=== PATIENT | female | born 1990 | race Caucasian/White ===

== ENCOUNTER 2016-11-22 12:49 | Inpatient (IN) | payer OTHER ==
[~2016-11-22] VITALS: Ht 160 cm; Wt 48.2 kg
[2016-11-22 13:44] LABS: PLATELET COUNT 295 x10^3mcL (130-400); RED CELL DISTRIBUTION WIDTH 12.3 % (11.5-14.5)
[2016-11-22 13:56] LABS: CALCIUM 9.3 mg/dL (8.5-10.1); CARBON DIOXIDE 26.1 mmol/L (21-32); CHLORIDE SERUM 105 mmol/L (98-107); CREATININE SERUM 0.9 mg/dL (0.6-1.0); GFR1 > 60 mL/min; GLUCOSE SERUM 88 mg/dL (74-106); POTASSIUM SERUM 4.2 mmol/L (3.5-5.1); SODIUM SERUM 143 mmol/L (136-145)
[2016-11-22 14:01] LABS: ALBUMIN 3.7 g/dL (3.4-5.0); ALKALINE PHOSPHATASE 68 U/L (46-116); ALT/SGPT 19 U/L (14-59); AMYLASE 39 U/L (25-115); AST/SGOT 19 U/L (15-37); BILIRUBIN TOTAL 1.13 mg/dL (0.20-1.00); LIPASE 88 IU/L (73-393); TOTAL PROTEIN, SERUM 7.4 g/dL (6.4-8.2)
[2016-11-22 14:23] LABS: BAND NEUTROPHIL 0 % (0-10); BASOPHIL 0 % (0-2); MONOCYTE 5 % (0-7); SEGMENTED NEUTROPHILS 88 % (37-75); rbc morphology (normal/abnorm) NORMAL (NORMAL)
[2016-11-22 14:24] LABS: PLATELET MORPHOLOGY PLATELETS NORMAL
[2016-11-22 16:36] LABS: PHOSPHOROUS 3.8 mg/dL (2.5-4.9)
[2016-11-22 16:48] LABS: FREE T4 1.28 ng/dL (0.76-1.46); FREE THYROXINE INDEX 3.4 ug/dL (1.4-4.5); T4(THYROXINE) 9.6 ug/dL (4.7-13.3)
[2016-11-22 17:10] VITALS: BP 128/77
[2016-11-22 17:27] LABS: UA SPECIFIC GRAVITY 1.025 (1.005-1.035); microscopic required? YES; urine erythrocyte NEGATIVE (NEGATIVE)
[2016-11-22 20:40] VITALS: BP 126/79
[2016-11-23 05:42] VITALS: BP 102/51
[2016-11-23 06:47] LABS: BASOPHIL % 0.1 % (0-2); PLATELET COUNT 237 x10^3mcL (130-400); RED CELL DISTRIBUTION WIDTH 12.1 % (11.5-14.5)
[2016-11-23 07:23] LABS: ALKALINE PHOSPHATASE 58 U/L (46-116); ALT/SGPT 11 U/L (14-59); AST/SGOT 13 U/L (15-37); BILIRUBIN TOTAL 0.8 mg/dL (0.20-1.00); CALCIUM 7.9 mg/dL (8.5-10.1); CARBON DIOXIDE 22.4 mmol/L (21-32); CHLORIDE SERUM 106 mmol/L (98-107); CREATININE SERUM 0.7 mg/dL (0.6-1.0); GFR1 > 60 mL/min; GLUCOSE SERUM 71 mg/dL (74-106); PHOSPHOROUS 3.5 mg/dL (2.5-4.9); POTASSIUM SERUM 3.4 mmol/L (3.5-5.1); SODIUM SERUM 140 mmol/L (136-145)
[2016-11-23 07:25] LABS: ALBUMIN 2.5 g/dL (3.4-5.0); TOTAL PROTEIN, SERUM 5.3 g/dL (6.4-8.2)
[2016-11-23 10:04] VITALS: BP 107/70
[2016-11-23 14:18] VITALS: BP 122/75
[2016-11-23 14:44] LABS: T3 TOTAL 0.95 ng/mL
[2016-11-23 18:07] VITALS: BP 128/71
[2016-11-23 22:52] VITALS: BP 114/61
[2016-11-24 06:14] VITALS: BP 97/56
[2016-11-24 06:41] LABS: CALCIUM 7.7 mg/dL (8.5-10.1); CARBON DIOXIDE 21.5 mmol/L (21-32); CHLORIDE SERUM 104 mmol/L (98-107); CREATININE SERUM 0.6 mg/dL (0.6-1.0); GFR1 > 60 mL/min; GLUCOSE SERUM 77 mg/dL (74-106); MAGNESIUM 1.7 mg/dL (1.8-2.4); PHOSPHOROUS 3.2 mg/dL (2.5-4.9); POTASSIUM SERUM 3.8 mmol/L (3.5-5.1); SODIUM SERUM 140 mmol/L (136-145)
[2016-11-24 06:47] LABS: BASOPHIL % 0.2 % (0-2); PLATELET COUNT 243 x10^3mcL (130-400)
[2016-11-24 09:27] VITALS: BP 121/72
[2016-11-24] MEDS ORDERED: VANCOCIN125 MG PO (12:42)
[2016-11-24] MEDS ORDERED: LAC PO (12:43)
[2016-11-24] MEDS ORDERED: MVIL PO (12:44)
[2016-11-24] MEDS ORDERED: FLA500 PO (12:46)
[2016-11-24 13:21] VITALS: BP 121/72
[2016-11-24] MEDS ORDERED: ZOF4 PO (14:24)
== END 2016-11-24 15:55 | disposition home or self-care (01) | DRG 720 ==
LOC: ED 12:49 → DU 15:35 → MU 11-24 11:24
PROVIDERS: Internal Medicine Gastroenterology; Specialist; ADMIT Family Medicine
PROC: 0DBN8ZX Excision of Sigmoid Colon, Via Natural or Artificial Opening Endoscopic, Diagnostic (ICD-10-PCS; principal; 2016-11-23 14:00)
DX: A41.9 Sepsis, unspecified organism (principal); N17.0 Acute kidney failure with tubular necrosis; R65.20 Severe sepsis without septic shock; A09 Infectious gastroenteritis and colitis, unspecified; E87.6 Hypokalemia; E86.0 Dehydration; Z68.1 Body mass index [BMI] 19.9 or less, adult; K59.00 Constipation, unspecified; F12.90 Cannabis use, unspecified, uncomplicated; Z53.20 Procedure and treatment not carried out because of patient's decision for unspecified reasons; N39.0 Urinary tract infection, site not specified; Z88.8 Allergy status to other drugs, medicaments and biological substances; Z82.49 Family history of ischemic heart disease and other diseases of the circulatory system
CPT/HCPCS: 45378; 83880; 84439; 87046; 87046-59; J1200; J1610; J1956; J2250; J2310; J2405; J2765; J3010; J3480; J3490; J7030; J7050; Q0092; Q9967

== ENCOUNTER 2016-12-12 11:59 | Emergency (ER) | payer OTHER ==
[~2016-12-12 11:59] MED LIST: FLA500 PO; LAC PO; MVIL PO; VANCOCIN125 MG PO; ZOF4 PO
[2016-12-12 12:07] VITALS: BP 124/72
== END 2016-12-12 14:45 | disposition home or self-care (01) ==
LOC: ED 11:59
DX: R19.7 Diarrhea, unspecified (principal); J06.9 Acute upper respiratory infection, unspecified; Z79.1 Long term (current) use of non-steroidal anti-inflammatories (NSAID)